=== PATIENT | male | born 1965 | race Caucasian/White ===

== ENCOUNTER 2018-06-06 21:08 | Emergency (ER) | payer OTHER ==
[~2018-06-06] VITALS: Ht 170.2 cm; Wt 147.4 kg
[2018-06-06 21:24] VITALS: BP 150/88
--- NOTE | 2018-06-06 21:41 | NUR ---
TO ER BED 6
--- NOTE | 2018-06-06 21:41 | NUR ---
53/M PRESENTS TO ED, C/O 12/05 INTERMITTENT R LEG PAIN, X2 DAYS. R DISTAL ANTERIOR LEG DISCOLORATION/REDNESS NOTED, +TENDERNESS, +CIRCULATION, +SENSATION, +ROM. PT REPORTS EXACERBATION WITH ACTIVITY, RELIEF WITH REST. 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 PT DENIES FEVER, N/V. BLOOD GLUCOSE 297 AT THIS TIME. HX DM, ASTHMA
[2018-06-06] MEDS ORDERED: LEVOFLOXACIN 750 MG/D5W PREMIX 150 ML IV ONE (22:25)
[2018-06-06] MEDS ORDERED: NACL 0.9% 1,000 ML IV SCH (22:25)
[2018-06-06 23:00] LABS: BASOPHILS # (AUTO) 0.1 K/uL (0.00-0.22); BASOPHILS % (AUTO) 0.7 % (0.0-2.0); EOSINOPHILS # (AUTO) 0.3 K/uL (0-0.4); EOSINOPHILS % (AUTO) 3.3 % (0.0-4.0); HEMOGLOBIN 14.9 g/dL (12.0-18.0); LYMPHOCYTES # (AUTO) 2.7 K/uL (2.0-11.5); LYMPHOCYTES % (AUTO) 27.3 % (20.5-51.1); MEAN CORPUSCULAR HEMOGLOBIN 27 pg (27-31); MEAN CORPUSCULAR HGB CONC 33 g/dL (33-37); MEAN CORPUSCULAR VOLUME 80.5 fL (80-94); MONOCYTES % (AUTO) 10.3 % (1.7-9.3); NEUTROPHILS # (AUTO) 5.8 K/uL (1.8-7.7); NEUTROPHILS % (AUTO) 58.4 % (42.2-75.2); PLATELET COUNT (AUTO) 235 K/uL (140-450); RED BLOOD CELL COUNT(AUTO) 5.59 MIL/uL (4.20-6.10); RED CELL DISTRIBUTION WIDTH 13.8 % (11.6-13.7)
[2018-06-06] MEDS ORDERED: INSULIN REGULAR, HUMAN 100 UNIT/ML VIAL SUBQ ONE (23:25)
[2018-06-06] MEDS ORDERED: KETOROLAC 30 MG/ML VIAL IVP ONE (23:45)
[2018-06-06 23:48] LABS: ANION GAP 11.3 (8-16); CARBON DIOXIDE 30.5 mmol/L (21-32); POTASSIUM 3.8 mmol/L (3.5-5.1)
[2018-06-06 23:49] LABS: ALBUMIN 3.3 g/dL (3.4-5.0); CREATININE 0.9 mg/dL (0.7-1.3); TOTAL BILIRUBIN 0.4 mg/dL (0.0-1.0)
[2018-06-07 00:20] VITALS: BP 142/80
--- NOTE | 2018-06-07 00:21 | NUR ---
Patient discharged with v/s stable. Written and verbal after care instructions given and explained. Patient alert, oriented and verbalized understanding of instructions. Ambulatory with steady gait. All questions addressed prior to discharge. ID band removed. Patient advised to follow up with PMD. Rx of CIPRO, BACTRUM given. Patient educated on indication of medication including possible reaction and side effects. Opportunity to ask questions provided and answered.
== END 2018-06-07 00:21 | disposition home or self-care (01) ==
LOC: MED 21:08
DX: L03.115 Cellulitis of right lower limb (principal); J45.909 Unspecified asthma, uncomplicated; E11.9 Type 2 diabetes mellitus without complications; F17.210 Nicotine dependence, cigarettes, uncomplicated
CPT/HCPCS: 36415; 80053; 82948; 83605; 85025; 87040; 96365; 96366; 96372; 96375; 99283; J1815; J1885; J1956; J7030

== ENCOUNTER 2018-07-17 22:13 | Emergency (ER) | payer OTHER ==
[~2018-07-17] VITALS: Ht 177.8 cm; Wt 145.1 kg
[2018-07-17 22:17] VITALS: BP 157/83
--- NOTE | 2018-07-17 22:17 | NUR ---
PT TAKEN TO BED 3
--- NOTE | 2018-07-17 22:58 | NUR ---
Dr. Schmidt evaluating patient at bedside.
[2018-07-17] MEDS ORDERED: KETOROLAC 30 MG/ML VIAL IVP ONE (23:10)
[2018-07-17] MEDS ORDERED: VANCOMYCIN 1,000 MG in DEXTROSE 5% 250 ML IV ONE (23:10)
[2018-07-17] MEDS ORDERED: NACL 0.9% 1,000 ML IV ONE (23:10)
[2018-07-17] MEDS ORDERED: VANCOMYCIN 1,000 MG VIAL ONE (23:20)
--- NOTE | 2018-07-18 00:41 | NUR ---
Patient appears to be resting comfortably in bed. Vital Signs within normal limits. Respirations even and unlabored.
--- NOTE | 2018-07-18 01:36 | NUR ---
Patient discharged with v/s stable. Written and verbal after care instructions given and explained. Patient alert, oriented and verbalized understanding of instructions. Ambulatory with steady gait. All questions addressed prior to discharge. ID band removed. Patient advised to follow up with PMD. Rx of Motrin, and Bactrim given. Patient educated on indication of medication including possible reaction and side effects. Opportunity to ask questions provided and answered.
[2018-07-18 01:46] VITALS: BP 131/60
== END 2018-07-18 01:36 | disposition home or self-care (01) ==
LOC: MED 22:13
DX: L03.115 Cellulitis of right lower limb (principal); I10 Essential (primary) hypertension; J45.909 Unspecified asthma, uncomplicated
CPT/HCPCS: 36415; 87040; 96365; 96366; 96375; 99283; J1885; J3370; J7030

== ENCOUNTER 2018-08-18 13:43 | Emergency (ER) | payer OTHER ==
[~2018-08-18] VITALS: Ht 177.8 cm; Wt 146.5 kg
[2018-08-18 13:55] VITALS: BP 152/99
--- NOTE | 2018-08-18 14:00 | NUR ---
PT BEDSIDE TRIAGED IN BED 5
--- NOTE | 2018-08-18 14:07 | NUR ---
PT BIB SELF C/O NONPRODUCTIVE COUGH, CONGESTION AND SORETHROAT 01/05 SORENESS X 2 WEEKS. 95% ON RA. LUNGS CLEAR BILATERALLY THROUGHOUT, RESPIRATIONS EVEN UNLABORED.
--- NOTE | 2018-08-18 14:24 | NUR ---
DR BANDA AT BEDSIDE
[2018-08-18 15:03] VITALS: BP 125/62
--- NOTE | 2018-08-18 15:05 | NUR ---
Patient discharged with v/s stable BY DR BANDA. Written and verbal after care instructions given and explained. Patient alert, oriented and verbalized understanding of instructions. Ambulatory with steady gait. All questions addressed prior to discharge. ID band removed. Patient advised to follow up with PMD. Rx of AUGMENTIN, ALBUTEROL, PROMETHAZINE given. Patient educated on indication of medication including possible reaction and side effects. Opportunity to ask questions provided and answered.
== END 2018-08-18 15:05 | disposition home or self-care (01) ==
LOC: MED 13:43
DX: J20.9 Acute bronchitis, unspecified (principal); J45.909 Unspecified asthma, uncomplicated; E11.9 Type 2 diabetes mellitus without complications; Z79.84 Long term (current) use of oral hypoglycemic drugs
CPT/HCPCS: 99283

== ENCOUNTER 2020-02-03 16:58 | Emergency (ER) | payer OTHER ==
[~2020-02-03] VITALS: Ht 177.8 cm; Wt 141.1 kg
[2020-02-03 17:03] VITALS: BP 144/101
--- NOTE | 2020-02-03 17:32 | NUR ---
55/M C/O RLE PAIN, ERYTHEMA, WARMTH DEVELOPING OVER LAST 2 DAYS. DENIES N/V, FEVER, TRAUMA. PAIN 02/05. SKIN INTACT. FSBS 276 MG/DL. NAD. HX- DM, ASTHMA NKA
--- NOTE | 2020-02-03 17:32 | NUR ---
AMB TO BED 5
--- NOTE | 2020-02-03 17:38 | NUR ---
DR CARPENTER EVALUATING PT AT BEDSIDE
[2020-02-03] MEDS ORDERED: cefTRIAXone 1,000 MG in LIDOCAINE MPF 1% 2.1 ML IM ONE (17:45)
[2020-02-03] MEDS ORDERED: cefTRIAXone 1,000 MG VIAL ONE (17:51)
[2020-02-03] MEDS ORDERED: LIDOCAINE MPF 1% 5 ML ONE (17:51)
--- NOTE | 2020-02-03 18:04 | NUR ---
U/S TECH AT BEDSIDE
[2020-02-03] MEDS ORDERED: HYDROcodone/APAP 10/325 MG 1 TAB TAB PO ONE (19:10)
--- NOTE | 2020-02-03 19:10 | NUR ---
Dasha sommer in [facility] - 02/03/20 at 1911 by ZOYA RECEIVED REPORT FROM СВЕТЛАНА FELDMAN FOR CONTINUITY OF CARE.
--- NOTE | 2020-02-03 19:11 | NUR ---
RECEIVED REPORT FROM СВЕТЛАНА FELDMAN FOR CONTINUITY OF CARE.
--- NOTE | 2020-02-03 19:21 | NUR ---
pt returned from US and went to bed 6
[2020-02-03 19:30] VITALS: BP 140/94
--- NOTE | 2020-02-03 19:30 | NUR ---
Patient discharged with v/s stable. Written and verbal after care instructions given and explained. Patient alert, oriented and verbalized understanding of instructions. Ambulatory with steady gait. All questions addressed prior to discharge. ID band removed. Patient advised to follow up with PMD. Rx of BACTRIM AND ALBUTEROL given. Patient educated on indication of medication including possible reaction and side effects. Opportunity to ask questions provided and answered.
== END 2020-02-03 19:30 | disposition home or self-care (01) ==
LOC: MED 16:58
DX: L03.115 Cellulitis of right lower limb (principal); E11.9 Type 2 diabetes mellitus without complications; J45.909 Unspecified asthma, uncomplicated
CPT/HCPCS: 93971; 96372; 99284; J0696; J2001; Q0092

== ENCOUNTER 2020-03-27 18:44 | Emergency (ER) | payer OTHER ==
[~2020-03-27] VITALS: Ht 177.8 cm; Wt 138.3 kg
--- NOTE | 2020-03-27 18:48 | NUR ---
Patient ambulated to bed 11. RN evaluating patient at bedside.
[2020-03-27 18:51] VITALS: BP 130/79
--- NOTE | 2020-03-27 18:55 | NUR ---
55 y/o male from home c/o left lower extremity pain with redness and swelling x 2 days. Noticable discoloration to lower extremity. Skin warm, dry, intact. +cms, +pulses to extremity. Pt states increased pain with ambulation. Positioned for comfort. VSS medhx:DM, asthma
--- NOTE | 2020-03-27 19:09 | NUR ---
Report given to СВЕТЛАНА Manzanares. Transfer of care at this time
--- NOTE | 2020-03-27 19:15 | NUR ---
received report from nella umana. pt resting in bed waiting to be seen by md. pt has redness to lle x 1 day. warm to touch and pain is 9/10. skin is intact, no drainage noted. afebrile, no n/v d
[2020-03-27] MEDS ORDERED: KETOROLAC 30 MG/ML VIAL IVP ONE (19:25)
[2020-03-27] MEDS ORDERED: NACL 0.9% 1,000 ML IV ONE (19:25)
[2020-03-27] MEDS ORDERED: ceFAZolin 1,000 MG VIAL ONE (19:42)
--- NOTE | 2020-03-27 20:03 | NUR ---
PT STILL C/O PAIN TO RIGHT LOWER LEG, PAIN 02/05/ TORADOL INEFFECTIVE
--- NOTE | 2020-03-27 20:04 | NUR ---
MD GUTIERREZ AWARE
[2020-03-27] MEDS ORDERED: MORPHINE SULFATE 4 MG/ML SYR IVP ONE (20:10)
[2020-03-27 20:36] LABS: BASOPHILS % (AUTO) 0.1 % (0.0-2.0); EOSINOPHILS % (AUTO) 0.2 % (0.0-4.0); HEMATOCRIT 43.6 % (36-52); HEMOGLOBIN 14.8 g/dL (12.0-18.0); LYMPHOCYTES # (AUTO) 1.9 K/uL (2.0-11.5); LYMPHOCYTES % (AUTO) 11.6 % (20.5-51.1); MEAN CORPUSCULAR HEMOGLOBIN 27 pg (27-31); MEAN CORPUSCULAR HGB CONC 34 g/dL (33-37); MEAN CORPUSCULAR VOLUME 79.9 fL (80-94); MONOCYTES # (AUTO) 1.5 K/uL (0.8-1.0); MONOCYTES % (AUTO) 9.5 % (1.7-9.3); NEUTROPHILS # (AUTO) 12.8 K/uL (1.8-7.7); NEUTROPHILS % (AUTO) 78.6 % (42.2-75.2); PLATELET COUNT (AUTO) 246 K/uL (140-450); RED BLOOD CELL COUNT(AUTO) 5.45 MIL/uL (4.20-6.10); WHITE BLOOD COUNT (AUTO) 16.3 K/uL (4.8-10.8)
[2020-03-27 20:42] LABS: ANION GAP 13.5 (8-16); CREATININE 0.8 mg/dL (0.6-1.3); POTASSIUM 3.5 mmol/L (3.5-5.1)
--- NOTE | 2020-03-27 20:51 | NUR ---
PT STATES PAIN IS BETTER RATES IT 09/05
--- NOTE | 2020-03-27 21:06 | NUR ---
ERMD AT BEDSIDE.
[2020-03-27 21:26] VITALS: BP 110/63
--- NOTE | 2020-03-27 21:27 | NUR ---
Patient discharged with v/s stable. Written and verbal after care instructions given and explained. Patient alert, oriented and verbalized understanding of instructions. Ambulatory with steady gait. All questions addressed prior to discharge. ID band removed. Patient advised to follow up with PMD. Rx of METFORMIN, NORCO, KEFLEX AND NAPROSYN given. Patient educated on indication of medication including possible reaction and side effects. Opportunity to ask questions provided and answered.
== END 2020-03-27 21:30 | disposition home or self-care (01) ==
LOC: MED 18:44
DX: L03.116 Cellulitis of left lower limb (principal); R73.9 Hyperglycemia, unspecified; Z79.899 Other long term (current) drug therapy
CPT/HCPCS: 36415; 80048; 83605; 85025; 87040; 93005; 96365; 96375; 99284; J0690; J1885; J2270; J7030

== ENCOUNTER 2020-06-23 01:10 | Emergency (ER) | payer OTHER ==
[~2020-06-23] VITALS: Ht 175.3 cm; Wt 145.1 kg
[2020-06-23 01:15] VITALS: BP 122/80
[2020-06-23] MEDS ORDERED: NACL 0.9% 1,000 ML IV ONE (01:55)
[2020-06-23] MEDS ORDERED: ONDANSETRON 4 MG/2 ML VIAL IVP ONE ×2 (01:55→03:05)
[2020-06-23] MEDS ORDERED: NACL 0.9% 500 ML IV ONE (01:55)
[2020-06-23 02:07] LABS: BASOPHILS % (AUTO) 0.2 % (0.0-2.0); EOSINOPHILS # (AUTO) 0.2 K/uL (0-0.4); EOSINOPHILS % (AUTO) 1.7 % (0.0-4.0); HEMATOCRIT 52.4 % (36-52); HEMOGLOBIN 17.3 g/dL (12.0-18.0); LYMPHOCYTES % (AUTO) 17.1 % (20.5-51.1); MEAN CORPUSCULAR HEMOGLOBIN 27 pg (27-31); MEAN CORPUSCULAR HGB CONC 33 g/dL (33-37); MEAN CORPUSCULAR VOLUME 80.4 fL (80-94); MONOCYTES # (AUTO) 1.4 K/uL (0.8-1.0); MONOCYTES % (AUTO) 12.6 % (1.7-9.3); NEUTROPHILS # (AUTO) 7.9 K/uL (1.8-7.7); NEUTROPHILS % (AUTO) 68.4 % (42.2-75.2); PLATELET COUNT (AUTO) 324 K/uL (140-450); RED BLOOD CELL COUNT(AUTO) 6.51 MIL/uL (4.20-6.10); WHITE BLOOD COUNT (AUTO) 11.5 K/uL (4.8-10.8)
[2020-06-23 02:30] LABS: ALBUMIN 4.1 g/dL (3.4-5.0); ANION GAP 16.6 (8-16); CARBON DIOXIDE 24.2 mmol/L (21-32); CREATININE 1.7 mg/dL (0.6-1.3); POTASSIUM 3.8 mmol/L (3.5-5.1); TOTAL BILIRUBIN 1.7 mg/dL (0.0-1.0)
[2020-06-23] MEDS ORDERED: INSULIN REGULAR, HUMAN 100 UNIT/ML VIAL IVP ONE (02:45)
[2020-06-23 04:14] VITALS: BP 124/78
== END 2020-06-23 04:14 | disposition home or self-care (01) ==
LOC: MED 01:10
DX: A08.39 Other viral enteritis (principal); R03.0 Elevated blood-pressure reading, without diagnosis of hypertension; J45.909 Unspecified asthma, uncomplicated; E11.9 Type 2 diabetes mellitus without complications
CPT/HCPCS: 36415; 74022; 80053; 83690; 85025; 96361; 96374; 96375; 96376; 99284; J1815; J2405; J7030

== ENCOUNTER 2021-02-28 03:07 | Emergency (ER) | payer OTHER ==
[~2021-02-28] VITALS: Ht 175.3 cm; Wt 141.5 kg
[2021-02-28 03:15] VITALS: BP 162/103
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
--- NOTE | 2021-02-28 03:52 | NUR ---
Dr. Vasquez examining patient.
[2021-02-28] MEDS ORDERED: NACL 0.9% 1,000 ML IV ONE (04:10)
[2021-02-28] MEDS ORDERED: CLINDAMYCIN 900 MG in DEXTROSE 5% 100 ML IV ONE (04:10)
[2021-02-28] MEDS ORDERED: CLINDAMYCIN 900 MG/6 ML VIAL IV ONE (04:13)
--- NOTE | 2021-02-28 04:34 | NUR ---
BLOOD LABS DRAWN AND SENT TO LAB.
[2021-02-28 04:59] LABS: BASOPHILS # (AUTO) 0.1 K/uL (0.00-0.22); BASOPHILS % (AUTO) 0.6 % (0.0-2.0); EOSINOPHILS # (AUTO) 0.6 K/uL (0-0.4); EOSINOPHILS % (AUTO) 6.4 % (0.0-4.0); HEMATOCRIT 45.8 % (36-52); HEMOGLOBIN 15.6 g/dL (12.0-18.0); LYMPHOCYTES # (AUTO) 2.2 K/uL (2.0-11.5); LYMPHOCYTES % (AUTO) 22.5 % (20.5-51.1); MEAN CORPUSCULAR HEMOGLOBIN 28 pg (27-31); MEAN CORPUSCULAR HGB CONC 34 g/dL (33-37); MEAN CORPUSCULAR VOLUME 80.5 fL (80-94); MONOCYTES # (AUTO) 0.8 K/uL (0.8-1.0); MONOCYTES % (AUTO) 8.2 % (1.7-9.3); NEUTROPHILS % (AUTO) 62.3 % (42.2-75.2); PLATELET COUNT (AUTO) 248 K/uL (140-450); RED BLOOD CELL COUNT(AUTO) 5.69 MIL/uL (4.20-6.10); RED CELL DISTRIBUTION WIDTH 13.5 % (11.6-13.7); WHITE BLOOD COUNT (AUTO) 9.7 K/uL (4.8-10.8)
[2021-02-28 05:07] LABS: ANION GAP 9.7 (8-16); CREATININE 0.9 mg/dL (0.6-1.3); POTASSIUM 3.7 mmol/L (3.5-5.1)
[2021-02-28] MEDS ORDERED: CLIN150C1 PO (05:21)
--- NOTE | 2021-02-28 05:40 | NUR ---
PATIENT AMBULATED TO BATHROOM W STEADY GAIT.
[2021-02-28] MEDS ORDERED: ALBU0.0912 IH (05:41)
[2021-02-28 05:47] VITALS: BP 136/82
--- NOTE | 2021-02-28 05:47 | NUR ---
Patient discharged with v/s stable. Written and verbal after care instructions given and explained. Patient alert, oriented and verbalized understanding of instructions. Ambulatory with steady gait. All questions addressed prior to discharge. ID band removed. Patient advised to follow up with PMD. Rx of CLINDAMYCIN given. Patient educated on indication of medication including possible reaction and side effects. Opportunity to ask questions provided and answered.
== END 2021-02-28 05:47 | disposition home or self-care (01) ==
LOC: MED 03:07
DX: L03.116 Cellulitis of left lower limb (principal); E11.9 Type 2 diabetes mellitus without complications; I10 Essential (primary) hypertension
CPT/HCPCS: 36415; 80048; 85025; 96365; 99284; J3490; J7030; J7060

== ENCOUNTER 2021-03-24 04:20 | Emergency (ER) | payer OTHER ==
[~2021-03-24] VITALS: Ht 175.3 cm; Wt 145.1 kg
[~2021-03-24 04:20] MED LIST: ALBU0.0912 IH; CLIN150C1 PO
[2021-03-24 04:23] VITALS: BP 135/92
--- NOTE | 2021-03-24 04:31 | NUR ---
patient wheeled to bed 12
--- NOTE | 2021-03-24 04:42 | NUR ---
NITESH Rios at bedside for examination
[2021-03-24] MEDS ORDERED: ACETAMINOPHEN EXTRA STRENGTH 500 MG TAB PO ONE (04:50)
--- NOTE | 2021-03-24 05:10 | NUR ---
rad at bedside.
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
--- NOTE | 2021-03-24 06:02 | NUR ---
X-Ray at bedside.
--- NOTE | 2021-03-24 06:10 | NUR ---
x-ray at bedside.
--- NOTE | 2021-03-24 06:38 | NUR ---
pt is sleeping. opens eyes to sound. equal rise and fall of chest wall. vss. pt is in stable condition. side rails x2, bed locked in lowest position.
[2021-03-24] MEDS ORDERED: HYDR-5080 PO (06:55)
[2021-03-24] MEDS ORDERED: IBUP-2218 PO (06:55)
--- NOTE | 2021-03-24 07:21 | NUR ---
report given to guanaco umana. transfer of care at this time.
--- NOTE | 2021-03-24 08:14 | NUR ---
Left arm was placed in a sugar tong splint. Right knee was placed in a fabricated knee immobilizer. ERMD notified.
[2021-03-24 08:21] VITALS: BP 119/74
--- NOTE | 2021-03-24 08:21 | NUR ---
Patient discharged with v/s stable. Written and verbal after care instructions ABOUT TIBIAL FRACTURE AND ULNAR FRACTURE given and explained. Patient alert, oriented and verbalized understanding of instructions. Wheel Chair Assisted to LOBBBY TO AWAIT RIDE HOME. All questions addressed prior to discharge. ID band removed. Patient advised to follow up with PMD. Rx of IBUPROFEN 800MG AND NORCO 7.5-325 given. Patient educated on indication of medication including possible reaction and side effects. Opportunity to ask questions provided and answered.
== END 2021-03-24 08:21 | disposition home or self-care (01) ==
LOC: MED 04:20
DX: S82.141A Displaced bicondylar fracture of right tibia, initial encounter for closed fracture (principal); S52.602A Unspecified fracture of lower end of left ulna, initial encounter for closed fracture; J45.909 Unspecified asthma, uncomplicated; E11.9 Type 2 diabetes mellitus without complications; Z79.899 Other long term (current) drug therapy; V89.2XXA Person injured in unspecified motor-vehicle accident, traffic, initial encounter; Y93.89 Activity, other specified; Y92.89 Other specified places as the place of occurrence of the external cause; Y99.8 Other external cause status
CPT/HCPCS: 29515; 73090; 73562; 73590; 99284; Q0092; 29105; 29505

== ENCOUNTER 2021-03-27 23:41 | Emergency (ER) | payer OTHER ==
[~2021-03-27] VITALS: Ht 177.8 cm; Wt 145.1 kg
[~2021-03-27 23:41] MED LIST changes: +HYDR-5080 PO; +IBUP-2218 PO
[2021-03-28 00:09] VITALS: BP 133/108
[2021-03-28] MEDS ORDERED: SULFAMETH/TRIMETH DS 800/160MG 1 TAB PO ONE (00:20)
[2021-03-28] MEDS ORDERED: IBUPROFEN 800 MG TAB PO ONE (00:25)
[2021-03-28] MEDS ORDERED: IBUP-2213 PO (00:26)
[2021-03-28] MEDS ORDERED: SULF-59 PO (00:26)
[2021-03-28] MEDS ORDERED: cefTRIAXone 1,000 MG in LIDOCAINE MPF 1% 2.1 ML IM ONE (00:30)
[2021-03-28] MEDS ORDERED: cefTRIAXone 1,000 MG VIAL ONE (00:34)
[2021-03-28] MEDS ORDERED: LIDOCAINE MPF 1% 5 ML ONE (00:35)
--- NOTE | 2021-03-28 00:59 | NUR ---
Patient discharged with v/s stable. Written and verbal after care instructions given and explained. Patient alert, oriented and verbalized understanding of instructions. Wheel Chair Assisted with to car. All questions addressed prior to discharge. ID band removed. Patient advised to follow up with PMD. Rx of BACTRIM, IBUPROFEN given. Patient educated on indication of medication including possible reaction and side effects. Opportunity to ask questions provided and answered.
== END 2021-03-28 00:59 | disposition home or self-care (01) ==
LOC: MED 23:41
DX: S82.291A Other fracture of shaft of right tibia, initial encounter for closed fracture (principal); S52.602A Unspecified fracture of lower end of left ulna, initial encounter for closed fracture; L03.115 Cellulitis of right lower limb; J45.909 Unspecified asthma, uncomplicated; E11.9 Type 2 diabetes mellitus without complications; Z79.899 Other long term (current) drug therapy; V89.2XXA Person injured in unspecified motor-vehicle accident, traffic, initial encounter; Y93.89 Activity, other specified; Y92.89 Other specified places as the place of occurrence of the external cause; Y99.8 Other external cause status
CPT/HCPCS: 29125; 96372; 99283; J0696; J2001

== ENCOUNTER 2022-04-10 06:52 | Emergency (ER) | payer OTHER ==
[~2022-04-10] VITALS: Ht 175.3 cm; Wt 136.1 kg
[~2022-04-10 06:52] MED LIST changes: +IBUP-2213 PO; +SULF-59 PO
[2022-04-10 07:00] VITALS: BP 148/79
--- NOTE | 2022-04-10 07:00 | NUR ---
TO BED AMBULATORY
--- NOTE | 2022-04-10 07:24 | NUR ---
Dr. Patel evaluating patient at bedside.
[2022-04-10] MEDS ORDERED: HYDROcodone/APAP 5/325 MG 1 TAB TAB PO ONE (07:30)
[2022-04-10] MEDS ORDERED: NACL 0.9% 500 ML IV ONE (07:30)
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
[2022-04-10] MEDS ORDERED: ceFAZolin 1,000 MG VIAL ONE (07:49)
--- NOTE | 2022-04-10 07:52 | NUR ---
LAB AT BEDSIDE.
--- NOTE | 2022-04-10 07:54 | NUR ---
LAB AT BEDSIDE.
[2022-04-10 08:10] LABS: BASOPHILS # (AUTO) 0.1 K/uL (0.00-0.22); EOSINOPHILS # (AUTO) 0.6 K/uL (0-0.4); EOSINOPHILS % (AUTO) 6.8 % (0.0-4.0); HEMATOCRIT 45.7 % (36-52); HEMOGLOBIN 15.2 g/dL (12.0-18.0); LYMPHOCYTES # (AUTO) 2.4 K/uL (2.0-11.5); LYMPHOCYTES % (AUTO) 25.4 % (20.5-51.1); MEAN CORPUSCULAR HEMOGLOBIN 27 pg (27-31); MEAN CORPUSCULAR HGB CONC 33 g/dL (33-37); MEAN CORPUSCULAR VOLUME 80.6 fL (80-94); MONOCYTES # (AUTO) 0.8 K/uL (0.8-1.0); MONOCYTES % (AUTO) 7.9 % (1.7-9.3); NEUTROPHILS # (AUTO) 5.7 K/uL (1.8-7.7); NEUTROPHILS % (AUTO) 58.9 % (42.2-75.2); PLATELET COUNT (AUTO) 278 K/uL (140-450); RED BLOOD CELL COUNT(AUTO) 5.67 MIL/uL (4.20-6.10); RED CELL DISTRIBUTION WIDTH 13.6 % (11.6-13.7); WHITE BLOOD COUNT (AUTO) 9.6 K/uL (4.8-10.8)
[2022-04-10 08:34] LABS: ALBUMIN 3.4 g/dL (3.4-5.0); ANION GAP 8.7 (8-16); CARBON DIOXIDE 29.5 mmol/L (21-32); CREATININE 0.9 mg/dL (0.6-1.3); POTASSIUM 4.2 mmol/L (3.5-5.1); TOTAL BILIRUBIN 0.6 mg/dL (0.0-1.0)
[2022-04-10] MEDS ORDERED: CEPH500T PO ×2 (08:52→11:55)
[2022-04-10] MEDS ORDERED: IBUP-2213 PO ×2 (08:52→11:55)
--- NOTE | 2022-04-10 08:57 | NUR ---
DR. OZUNA RE-EVALUATING PATIENT AT BEDSIDE
--- NOTE | 2022-04-10 09:13 | NUR ---
X-RAY AT BEDSIDE
--- NOTE | 2022-04-10 09:59 | NUR ---
Patient discharged with v/s stable. Written and verbal after care instructions given and explained. Patient alert, oriented and verbalized understanding of instructions. Ambulatory with steady gait. All questions addressed prior to discharge. ID band removed. Patient advised to follow up with PMD. Rx of CWEPHALEXIN, IBUPROFEN given. Patient educated on indication of medication including possible reaction and side effects. Opportunity to ask questions provided and answered.
[2022-04-10 10:00] VITALS: BP 123/67
[2022-04-10] MEDS ORDERED: SULF-59 PO (11:55)
== END 2022-04-10 09:59 | disposition home or self-care (01) ==
LOC: MED 06:52
DX: L03.116 Cellulitis of left lower limb (principal); E11.65 Type 2 diabetes mellitus with hyperglycemia; J45.909 Unspecified asthma, uncomplicated; Z79.899 Other long term (current) drug therapy
CPT/HCPCS: 36415; 73590; 80053; 82550; 83605; 83880; 84484; 85025; 87040; 96365; 99284; J0690; Q0092; J7030

== ENCOUNTER 2024-02-04 00:53 | Emergency (ER) | payer OTHER ==
[~2024-02-04] VITALS: Ht 172.7 cm; Wt 145.1 kg
[~2024-02-04 00:53] MED LIST changes: +CEPH500T PO
[2024-02-04 01:16] VITALS: BP 138/78; PULSE 95; RESP 18; TEMP 98.6; O2SAT 95
[2024-02-04] MEDS ORDERED: CEPH-588 PO (01:42)
[2024-02-04] MEDS: cephALEXin 500 MG CAP PO ONE (01:52)
== END 2024-02-04 01:59 | disposition left against medical advice (07) ==
LOC: MED 00:53
DX: L03.116 Cellulitis of left lower limb (principal); J45.909 Unspecified asthma, uncomplicated; E11.9 Type 2 diabetes mellitus without complications; Z79.899 Other long term (current) drug therapy
CPT/HCPCS: 99283